=== PATIENT | female | born 1955 | race African-American/Black ===

== ENCOUNTER 2025-02-12 06:38 | Emergency (ER) | payer MEDICARE, OTHER ==
[2025-02-12 07:03] VITALS: BP 149/109; PULSE 82; RESP 18; TEMP 36.6; O2SAT 97
[2025-02-12 07:53] LABS: BASOPHILS % 1.3 % (0.0-2.0); EOSINOPHILS % 1.8 % (0.0-5.0); HEMATOCRIT. 41.8 % (36.0-48.0); HEMOGLOBIN. 14.1 g/dL (12.0-16.0); MEAN CORPUSCULAR HEMOGLOBIN 30.7 pg (28.0-32.0); MEAN CORPUSCULAR HGB CONC 33.8 g/dL (31.0-37.0); MEAN CORPUSCULAR VOLUME 90.8 fL (81.0-99.0); MEAN PLATELET VOLUME 7.7 fl (7.4-10.4); MONOCYTES % 6.4 % (2.0-8.0); NEUTROPHILS % 64.5 % (40.0-76.0); PLATELET 274 x1000/uL (130-400); RED CELL DISTRIBUTION WIDTH 13.5 % (11.6-14.6); WHITE BLOOD COUNT 7.8 x1000/uL (4.5-11.0)
[2025-02-12 08:11] LABS: POTASSIUM 3.6 mEq/L (3.5-5.1)
[2025-02-12 08:12] LABS: CALCIUM 9.2 mg/dL (8.7-10.4)
[2025-02-12 08:17] LABS: CREATININE 1.1 mg/dL (0.6-1.0)
[2025-02-12 08:54] LABS: ALANINE AMINOTRANSFERASE 13 IU/L (10-49); ALBUMIN 4.1 g/dL (3.2-4.8); ASPARTATE AMINOTRANSFERASE 17 IU/L (<34); BILIRUBIN DIRECT 0.1 mg/dL (<=3.0); BILIRUBIN TOTAL 0.6 mg/dL (0.1-1.0); PROTEIN TOTAL 7.1 g/dL (6.0-8.3)
[2025-02-12 08:56] LABS: T4 FREE 0.88 ng/dL (0.89-1.76); THYROID STIMULATING HORMONE 12.96 uIU/mL (0.55-4.78)
[2025-02-12 09:00] LABS: CLARITY URINE CLOUDY (CLEAR); COLOR URINE YELLOW (YELLOW)
[2025-02-12 09:01] LABS: GLUCOSE URINE NEGATIVE (NEGATIVE); KETONES URINE NEGATIVE (NEGATIVE); NITRITE URINE NEGATIVE (NEGATIVE); OCCULT BLOOD URINE TRACE (NEGATIVE); PROTEIN URINE TRACE (NEGATIVE); SPECIFIC GRAVITY URINE 1.025 (1.005-1.030); UROBILINOGEN URINE 0.2 E.U./dL (0.2-1.0)
[2025-02-12 09:02] LABS: LEUKOCYTE ESTERASE URINE 1+ (NEGATIVE)
[2025-02-12] MEDS: KETOROLAC 30MG/ML VIAL IM ONE (09:03)
[2025-02-12] MEDS: ACETAMINOPHEN 325MG TABLET PO ONE (09:03)
[2025-02-12] MEDS: ONDANSETRON 4MG ODT PO ONE (09:04)
[2025-02-12 09:05] LABS: SQUAMOUS EPITHELIAL CELL URINE 3+ /lpf (RARE/1+)
[2025-02-12 09:06] LABS: BACTERIA URINE 4+; TRICHOMONAS URINE 3+
[2025-02-12 09:07] LABS: RBC URINE 0-2 /hpf (0-2); WBC URINE 0-2 /hpf (0-2)
[2025-02-12] MEDS ORDERED: METR-167 MT (09:14)
[2025-02-12] MEDS ORDERED: CEFP200T13 MT (09:14)
[2025-02-12] MEDS: CEFTRIAXONE SODIUM 1G VIAL IM ONE (09:15)
[2025-02-12] MEDS: LIDOCAINE HCL 1% 20ML VIAL INFIL ONE (09:15)
== END 2025-02-12 10:42 | disposition home or self-care (01) ==
LOC: ER 06:53
DX: G43.909 Migraine, unspecified, not intractable, without status migrainosus (principal); N39.0 Urinary tract infection, site not specified; A59.9 Trichomoniasis, unspecified; F17.210 Nicotine dependence, cigarettes, uncomplicated; E03.9 Hypothyroidism, unspecified
CPT/HCPCS: 99285; 70450; 80076; 80048; 81003; 84439; 83690; 84443; 85025; 36415; 96372; J1885; Q0162; J0696; J3490